=== PATIENT | male | born 1970 | race African-American/Black ===

== ENCOUNTER 2017-04-21 08:02 | Inpatient (IN) | payer SELFPAY ==
[~2017-04-21] VITALS: Ht 180.3 cm; Wt 87.5 kg
[2017-04-21] MEDS ORDERED: ALBUTEROL SULF 2.5 MG/0.5ML(0.5%) NEB SOLN NEB ONE (09:00)
[2017-04-21] MEDS ORDERED: IPRATROPIUM BROM 0.5 MG/2.5ML INH SOL NEB ONE (09:00)
[2017-04-21] MEDS ORDERED: methylPREDNISolone SOD SUCC 125 MG/2 ML VL IM ONE (09:00)
[2017-04-21] MEDS ORDERED: cefTRIAXone SOD 1,000 MG VL IM ONE (09:00)
[2017-04-21] MEDS ORDERED: cefTRIAXone 1GM/50ML D5W 50 ML IV ONE (10:15)
[2017-04-21] MEDS ORDERED: AZITHROMYCIN 500MG/D5W 250ML 250 ML IV ONE ×2 (10:15→13:00)
[2017-04-21] MEDS ORDERED: SODIUM CHLORIDE 0.9% 1,000 ML IV ONE (10:15)
[2017-04-21 10:43] LABS: Basophils # (auto) 0 uL; Basophils % (auto) 0.3 % (0.0-2.0); CONDITION Y; DEFINITIVE SEE PRINTOUT; Eosinophils # (auto) 0 uL; Eosinophils % (auto) 0.2 % (0.0-7.0); Hematocrit 43.1 % (41.0-53.0); Hemoglobin 14.3 g/dL (13.5-17.5); Lymphocytes # (auto) 1.1 uL; Lymphocytes % (auto) 8.5 % (10.0-50.0); Mean Corpuscular Hemoglobin 27.5 pg (28.0-32.0); Mean Corpuscular Hgb Conc. 33.3 g/dL (32.0-36.0); Mean Corpuscular Volume 82.6 fL (80.0-100.0); Mean Platelet Volume 8.8 fL (7.4-10.4); Monocytes # (auto) 0.8 uL; Neutrophils # (auto) 10.6 uL; Platelet Count (auto) 270 10^3/uL (140-450); Red Cell Distribution Width 19.8 % (11.6-16.0); White Blood Cell 12.5 10^3/uL (4.4-10.8)
[2017-04-21 11:04] LABS: Albumin 3.8 g/dL (3.4-5.0); BUN/Creatinine Ratio 15.6; Calcium 8.7 mg/dL (8.5-10.1); Potassium 3.8 mmol/L (3.5-5.1); Total Protein 7.8 g/dL (6.4-8.2)
[2017-04-21] MEDS ORDERED: ONDANSETRON HCL 4 MG/2 ML VIAL IV PRN (13:00)
[2017-04-21] MEDS ORDERED: MORPHINE SULF INJ 2 MG/ML SYRINGE 1ML IV PRN (13:00)
[2017-04-21] MEDS: SODIUM CHLORIDE 0.9% 1,000 ML IV SCH (13:00)
[2017-04-21] MEDS ORDERED: NICOTINE 21MG/24 HR TOPICAL PATCH TD ONE (13:00)
[2017-04-21] MEDS ORDERED: HYDROcodone-ACET 5/325MG TAB PO PRN (13:00)
[2017-04-21 13:12] VITALS: BP 141/81
[2017-04-21 13:45] LABS: INR 0.96 (0.9-1.15); Partial Thromboplastin Time 28.7 sec (22.64-33.71); Prothrombin Time 10.5 sec (9.37-12.3)
[2017-04-21 14:03] LABS: REFLEX LACTIC ACID YES OR NO YES
[2017-04-21 15:05] VITALS: BP 118/63
[2017-04-21 16:27] VITALS: BP 127/76
[2017-04-21] MEDS: ACETAMINOPHEN 500 MG TAB PO PRN (16:30)
[2017-04-21 18:58] LABS: Urine Bilirubin Negative (Negative); Urine Color Yellow (Yellow); Urine Glucose Normal (Normal); Urine Ketone Negative (Negative); Urine Mucus FEW (None Seen); Urine Nitrite Negative (Negative); Urine RBC 2 /hpf (0 - 3); Urine Squamous Epithelial Cell MOD /hpf (<5)
[2017-04-21 19:00] LABS: Urine Blood 1+ /uL (Negative)
[2017-04-21] MEDS: IPRATROPIUM BROM 0.5 MG/2.5ML INH SOL NEB SCH (19:18)
[2017-04-21] MEDS: ALBUTEROL SULF 2.5 MG/0.5ML(0.5%) NEB SOLN NEB SCH (19:19)
[2017-04-21 22:00] VITALS: BP_SYST 125; BP_DIAS 64; BP_DIAS 78
[2017-04-22] MEDS: SODIUM CHLORIDE 0.9% 1,000 ML IV SCH ×2 (00:37→09:00)
[2017-04-22] MEDS: guaiFENesin-DEXTROMETHORPHAN 5ML SYR PO PRN ×4 (01:17→22:30)
[2017-04-22 05:00] VITALS: BP 123/99
[2017-04-22 06:14] LABS: Basophils # (auto) 0 uL; CONDITION Y; DEFINITIVE SEE PRINTOUT; Eosinophils # (auto) 0 uL; Hematocrit 39.9 % (41.0-53.0); Hemoglobin 13.2 g/dL (13.5-17.5); Lymphocytes # (auto) 0.6 uL; Lymphocytes % (auto) 6.1 % (10.0-50.0); Mean Corpuscular Hemoglobin 27.4 pg (28.0-32.0); Mean Corpuscular Volume 82.9 fL (80.0-100.0); Mean Platelet Volume 9.2 fL (7.4-10.4); Monocytes # (auto) 1.3 uL; Monocytes % (auto) 11.8 % (0.0-12.0); Neutrophils # (auto) 8.7 uL; Neutrophils % (auto) 82.1 % (37.0-80.0); Platelet Count (auto) 262 10^3/uL (140-450); Red Cell Distribution Width 19.6 % (11.6-16.0); White Blood Cell 10.6 10^3/uL (4.4-10.8)
[2017-04-22 06:23] LABS: Calcium 8.3 mg/dL (8.5-10.1); Potassium 3.9 mmol/L (3.5-5.1)
[2017-04-22 06:25] LABS: BUN/Creatinine Ratio 13.9
[2017-04-22] MEDS: IPRATROPIUM BROM 0.5 MG/2.5ML INH SOL NEB SCH ×4 (07:42→18:36)
[2017-04-22] MEDS: ALBUTEROL SULF 2.5 MG/0.5ML(0.5%) NEB SOLN NEB SCH ×4 (07:42→18:36)
[2017-04-22 09:00] VITALS: BP 134/71
[2017-04-22] MEDS: cefTRIAXone 1GM/50ML D5W 50 ML IV SCH (09:40)
[2017-04-22] MEDS: NICOTINE 21MG/24 HR TOPICAL PATCH TD SCH (09:41)
[2017-04-22] MEDS: ACETAMINOPHEN 500 MG TAB PO PRN ×2 (10:12→22:21)
[2017-04-22] MEDS ORDERED: AZITHROMYCIN 500MG/D5W 250ML 250 ML IV ONE (10:45)
[2017-04-22] MEDS ORDERED: ALPRAZolam 0.25 MG TAB PO PRN (10:45)
[2017-04-22 11:22] LABS: B-Type Natriuretic Peptide 390.63 pg/mL (0-100)
[2017-04-22 13:00] VITALS: BP 128/74
[2017-04-22] MEDS ORDERED: POTASSIUM CHL 10% (20 MEQ/15ML) ORAL SOLN PO ONE (16:15)
[2017-04-22] MEDS ORDERED: FUROSEMIDE 20 MG/2 ML VIAL IV ONE (16:15)
[2017-04-22] MEDS: ASPirin-EC 81 mg tab PO SCH (16:54)
[2017-04-22] MEDS: ENALAPRIL MALEATE 2.5 MG TAB PO SCH (16:55)
[2017-04-22 17:00] VITALS: BP 134/78
[2017-04-22 20:00] VITALS: BP 135/71
[2017-04-22 22:00] VITALS: BP 135/71
[2017-04-23 05:00] VITALS: BP 139/67
[2017-04-23] MEDS: ALBUTEROL SULF 2.5 MG/0.5ML(0.5%) NEB SOLN NEB SCH ×4 (06:48→19:23)
[2017-04-23] MEDS: IPRATROPIUM BROM 0.5 MG/2.5ML INH SOL NEB SCH ×4 (06:48→19:23)
[2017-04-23 07:29] LABS: CONDITION Y; DEFINITIVE SEE PRINTOUT; Hematocrit 43.8 % (41.0-53.0); Hemoglobin 14.6 g/dL (13.5-17.5); Mean Corpuscular Hemoglobin 27.8 pg (28.0-32.0); Mean Corpuscular Hgb Conc. 33.3 g/dL (32.0-36.0); Mean Corpuscular Volume 83.4 fL (80.0-100.0); Mean Platelet Volume 9.1 fL (7.4-10.4); Platelet Count (auto) 254 10^3/uL (140-450); White Blood Cell 7.2 10^3/uL (4.4-10.8)
[2017-04-23 07:58] LABS: Red Cell Distribution Width 20.1 % (11.6-16.0)
[2017-04-23 07:59] LABS: Metamyelocytes % 0; Myelocytes % 0; Promyelocytes % 0; Reactive Lymphocytes 0
[2017-04-23 09:00] VITALS: BP 112/70
[2017-04-23] MEDS ORDERED: AZITHROMYCIN 500MG/D5W 250ML 250 ML IV SCH (10:00)
[2017-04-23] MEDS ORDERED: TRIAMTERENE/HCTZ 37.5/25 MG CAP PO ONE (10:30)
[2017-04-23] MEDS: ASPirin-EC 81 mg tab PO SCH (10:44)
[2017-04-23] MEDS: ENALAPRIL MALEATE 2.5 MG TAB PO SCH (10:45)
[2017-04-23] MEDS: NICOTINE 21MG/24 HR TOPICAL PATCH TD SCH (10:45)
[2017-04-23] MEDS: cefTRIAXone 1GM/50ML D5W 50 ML IV SCH (10:45)
[2017-04-23 12:32] LABS: Platelet Estimate Adequate
[2017-04-23 12:33] LABS: Anisocytosis Slight
[2017-04-23 13:00] VITALS: BP 124/94
[2017-04-23 17:00] VITALS: BP 136/95
[2017-04-23] MEDS: guaiFENesin-DEXTROMETHORPHAN 5ML SYR PO PRN (21:07)
[2017-04-23 22:00] VITALS: BP 125/68
[2017-04-24 05:00] VITALS: BP 126/74
[2017-04-24] MEDS: ALBUTEROL SULF 2.5 MG/0.5ML(0.5%) NEB SOLN NEB SCH ×4 (05:37→20:00)
[2017-04-24] MEDS: IPRATROPIUM BROM 0.5 MG/2.5ML INH SOL NEB SCH ×4 (05:37→20:00)
[2017-04-24 07:11] LABS: BUN/Creatinine Ratio 19.3; Calcium 8.7 mg/dL (8.5-10.1); Potassium 3.7 mmol/L (3.5-5.1)
[2017-04-24 08:32] VITALS: BP 111/81
[2017-04-24] MEDS: cefTRIAXone 1GM/50ML D5W 50 ML IV SCH (09:58)
[2017-04-24] MEDS ORDERED: METOPROLOL SUCCINATE XL 50 MG TAB PO SCH (10:45)
[2017-04-24] MEDS ORDERED: ADENOSINE 76 MG in GIVE UN-DILUTED 0 ML IV ONE (11:45)
[2017-04-24] MEDS: NICOTINE 21MG/24 HR TOPICAL PATCH TD SCH (11:46)
[2017-04-24 13:00] VITALS: BP 99/75
[2017-04-24] MEDS: ASPirin-EC 81 mg tab PO SCH (13:41)
[2017-04-24] MEDS: AZITHROMYCIN 250 MG TAB PO SCH (13:41)
[2017-04-24] MEDS: ENALAPRIL MALEATE 2.5 MG TAB PO SCH (13:42)
[2017-04-24] MEDS: TRIAMTERENE/HCTZ 37.5/25 MG CAP PO SCH (13:42)
[2017-04-24 16:33] VITALS: BP 104/69
[2017-04-24 22:00] VITALS: BP 104/65
[2017-04-25 05:00] VITALS: BP 90/59
[2017-04-25] MEDS: ALBUTEROL SULF 2.5 MG/0.5ML(0.5%) NEB SOLN NEB SCH ×2 (06:46→13:35)
[2017-04-25] MEDS: IPRATROPIUM BROM 0.5 MG/2.5ML INH SOL NEB SCH ×2 (06:46→13:35)
[2017-04-25 08:44] VITALS: BP 118/79
[2017-04-25] MEDS: TRIAMTERENE/HCTZ 37.5/25 MG CAP PO SCH (09:38)
[2017-04-25] MEDS: cefTRIAXone 1GM/50ML D5W 50 ML IV SCH (09:38)
[2017-04-25] MEDS: ASPirin-EC 81 mg tab PO SCH (09:38)
[2017-04-25] MEDS: ENALAPRIL MALEATE 2.5 MG TAB PO SCH (09:39)
[2017-04-25] MEDS: NICOTINE 21MG/24 HR TOPICAL PATCH TD SCH (09:39)
[2017-04-25] MEDS: AZITHROMYCIN 250 MG TAB PO SCH (09:39)
[2017-04-25] MEDS ORDERED: METOPROLOL TARTRATE 25 MG TAB PO SCH (10:00)
[2017-04-25 12:37] VITALS: BP 105/74
[2017-04-25 14:07] VITALS: BP 118/79
== END 2017-04-25 14:15 | disposition home or self-care (01) | DRG 871 ==
LOC: ER 08:02 → EAST 08:03
PROVIDERS: ADMIT Internal Medicine; ATTEND Internal Medicine
DX: A41.9 Sepsis, unspecified organism (principal); J18.1 Lobar pneumonia, unspecified organism; I50.43 Acute on chronic combined systolic (congestive) and diastolic (congestive) heart failure; I42.0 Dilated cardiomyopathy; J98.11 Atelectasis; I51.7 Cardiomegaly; F17.200 Nicotine dependence, unspecified, uncomplicated; F41.9 Anxiety disorder, unspecified
CPT/HCPCS: 36415; 71020; 71250; 76604; 78452; 80048; 80053; 80307; 81001; 83605; 83880; 85007; 85025; 85027; 85610; 85730; 87040; 87070; 87205; 93017; 93306; 94640; 96361; 96365; 96367; 96375; 99291; J0153; J0696; J2405

== ENCOUNTER 2017-08-06 12:22 | Emergency (ER) | payer SELFPAY ==
[~2017-08-06] VITALS: Ht 180.3 cm; Wt 97.5 kg
[2017-08-06 12:37] VITALS: BP 126/101
[2017-08-06 13:36] LABS: Basophils # (auto) 0.1 uL; Basophils % (auto) 0.7 % (0.0-2.0); Eosinophils # (auto) 0.1 uL; Eosinophils % (auto) 1.4 % (0.0-7.0); Hematocrit 47.3 % (41.0-53.0); Hemoglobin 15.9 g/dL (13.5-17.5); Lymphocytes # (auto) 2.9 uL; Lymphocytes % (auto) 30.1 % (10.0-50.0); Mean Corpuscular Hemoglobin 29.3 pg (28.0-32.0); Mean Corpuscular Hgb Conc. 33.7 g/dL (32.0-36.0); Mean Platelet Volume 8.8 fL (6.9-10.8); Monocytes # (auto) 0.7 uL; Monocytes % (auto) 7.3 % (0.0-12.0); Neutrophils # (auto) 5.9 uL; Neutrophils % (auto) 60.5 % (37.0-80.0); Nucleated Red Blood Cells % 0.2 %; Platelet Count (auto) 242 10^3/uL (140-450); Red Cell Distribution Width 15.9 % (11.8-14.3); White Blood Cell 9.8 10^3/uL (4.4-10.8)
[2017-08-06 13:44] LABS: Albumin 3.3 g/dL (3.4-5.0); Alkaline Phosphatase 94 U/L (45-117); Anion Gap 4 (5-15); Aspartate Aminotransferase 10 U/L (15-37); Bilirubin, Total 1.3 mg/dL (0.2-1.0); Blood Urea Nitrogen 11 mg/dL (7-18); Calcium 8.5 mg/dL (8.5-10.1); Carbon Dioxide 26 mmol/L (21-32); Chloride 108 mmol/L (98-107); GFR African American 102 mL/min; GFR Non-African American 84 mL/min; Glucose 103 mg/dL (74-106); Magnesium 2.2 mg/dL (1.6-2.6); Sodium 138 mmol/L (136-145); Total Protein 7.4 g/dL (6.4-8.2)
== END 2017-08-06 19:30 | disposition left against medical advice (07) ==
LOC: ER 12:22
DX: R06.02 Shortness of breath (principal); R00.2 Palpitations; Z53.21 Procedure and treatment not carried out due to patient leaving prior to being seen by health care provider
CPT/HCPCS: 36415; 71020; 80053; 83735; 84484; 85025; 93005

== ENCOUNTER 2017-11-11 17:17 | Emergency (ER) | payer MEDICAID ==
[~2017-11-11] VITALS: Ht 180.3 cm; Wt 102.1 kg
[2017-11-11 17:32] VITALS: BP 152/93
[2017-11-11 18:40] LABS: Basophils # (auto) 0.1 uL; Basophils % (auto) 0.5 % (0.0-2.0); Eosinophils # (auto) 0.1 uL; Eosinophils % (auto) 0.9 % (0.0-7.0); Hematocrit 47.6 % (41.0-53.0); Hemoglobin 15.8 g/dL (13.5-17.5); Lymphocytes # (auto) 2.7 uL; Lymphocytes % (auto) 25.9 % (10.0-50.0); Mean Corpuscular Hemoglobin 29.7 pg (28.0-32.0); Mean Corpuscular Hgb Conc. 33.2 g/dL (32.0-36.0); Mean Corpuscular Volume 89.3 fL (80.0-100.0); Neutrophils # (auto) 6.5 uL; Neutrophils % (auto) 62.7 % (37.0-80.0); Nucleated Red Blood Cells % 0.1 %; Platelet Count (auto) 239 10^3/uL (140-450); Red Blood Cells 5.33 10^6/uL (4.5-5.90); Red Cell Distribution Width 14.5 % (11.8-14.3); White Blood Cell 10.4 10^3/uL (4.4-10.8)
[2017-11-11 18:41] LABS: Alanine Aminotransferase 25 U/L (16-61); Albumin 3.5 g/dL (3.4-5.0); Alkaline Phosphatase 92 U/L (45-117); Anion Gap 11 (5-15); Aspartate Aminotransferase 12 U/L (15-37); BUN/Creatinine Ratio 14.8; Bilirubin, Total 0.5 mg/dL (0.2-1.0); Blood Urea Nitrogen 17 mg/dL (7-18); Calcium 8.4 mg/dL (8.5-10.1); Carbon Dioxide 22 mmol/L (21-32); Chloride 107 mmol/L (98-107); GFR African American 87 mL/min; GFR Non-African American 72 mL/min; Glucose 80 mg/dL (74-106); Potassium 3.9 mmol/L (3.5-5.1); Sodium 140 mmol/L (136-145); Total Protein 7.9 g/dL (6.4-8.2)
== END 2017-11-11 20:22 | disposition left against medical advice (07) ==
LOC: ER 17:20
DX: R06.02 Shortness of breath (principal); Z53.21 Procedure and treatment not carried out due to patient leaving prior to being seen by health care provider
CPT/HCPCS: 36415; 71046; 80053; 84484; 85025; 93005

== ENCOUNTER 2018-01-22 19:38 | Emergency (ER) | payer MEDICAID, OTHER ==
[~2018-01-22] VITALS: Ht 182.9 cm; Wt 86.2 kg
[2018-01-22 19:40] VITALS: BP 155/103
== END 2018-01-22 20:38 ==
LOC: EDBD 19:38 → ER 19:41
DX: R07.89 Other chest pain (principal); F17.210 Nicotine dependence, cigarettes, uncomplicated
CPT/HCPCS: 93005

== ENCOUNTER 2018-01-23 16:09 | Emergency (ER) | payer OTHER ==
[~2018-01-23] VITALS: Ht 180.3 cm; Wt 92.5 kg
[2018-01-23 16:20] VITALS: BP 118/74
== END 2018-01-23 16:43 | disposition home or self-care (01) ==
LOC: EDBD 16:09 → ER 16:15
DX: R07.89 Other chest pain (principal); I11.0 Hypertensive heart disease with heart failure; I50.9 Heart failure, unspecified; F17.200 Nicotine dependence, unspecified, uncomplicated
CPT/HCPCS: 93005

== ENCOUNTER 2020-11-15 15:15 | Emergency (ER) | payer MEDICAID, OTHER ==
[~2020-11-15] VITALS: Ht 180.3 cm; Wt 110.7 kg
[2020-11-15 15:26] VITALS: BP 152/104
== END 2020-11-15 19:23 | disposition left against medical advice (07) ==
LOC: ER 15:15
DX: R21 Rash and other nonspecific skin eruption (principal); Z53.21 Procedure and treatment not carried out due to patient leaving prior to being seen by health care provider

== ENCOUNTER 2023-09-16 07:29 | Inpatient (IN) | payer BC, MEDICAID ==
[~2023-09-16] VITALS: Ht 185.4 cm; Wt 109.4 kg
[2023-09-16 08:23] LABS: Basophils # (auto) 0.1 10 ^3/uL (0-0.2); Basophils % (auto) 0.4 % (0.0-2.0); Eosinophils # (auto) 0.1 10 ^3/uL (0-0.8); Hematocrit 43.9 % (41.0-53.0); Hemoglobin 14.6 g/dL (13.5-17.5); Lymphocytes # (auto) 2.2 10 ^3/uL (0.4-5.4); Lymphocytes % (auto) 14.2 % (10.0-50.0); Mean Corpuscular Hemoglobin 28.9 pg (28.0-32.0); Mean Corpuscular Hgb Conc. 33.2 g/dL (32.0-36.0); Mean Corpuscular Volume 87.1 fL (80.0-100.0); Monocytes # (auto) 1.6 10 ^3/uL (0-1.3); Monocytes % (auto) 10.3 % (0.0-12.0); Neutrophils # (auto) 11.2 10 ^3/uL (1.6-8.6); Neutrophils % (auto) 74.1 % (37.0-80.0); Nucleated Red Blood Cells % 0.1 %; Red Blood Cells 5.04 10^6/uL (4.5-5.90); Red Cell Distribution Width 14.1 % (11.8-14.3); White Blood Cell 15.1 10^3/uL (4.4-10.8)
[2023-09-16 08:56] LABS: INR 1.02 (0.9-1.15); Partial Thromboplastin Time 29.7 SEC (24.5-34.5); Prothrombin Time 10.7 sec (9.3-11.8)
[2023-09-16 09:24] LABS: Alanine Aminotransferase 34 U/L (7-40); Alkaline Phosphatase 116 U/L (46-116); Anion Gap 7 (5-15); BUN/Creatinine Ratio 16.3 (10.0-20.0); Blood Urea Nitrogen 13 mg/dL (9-23); Calcium 8.7 mg/dL (8.7-10.4); Carbon Dioxide 23 mmol/L (20-30); Chloride 108 mmol/L (98-107); Glucose 113 mg/dL (74-106); Lipase 26 U/L (12-53); Potassium 4.4 mmol/L (3.5-5.1); Sodium 138 mmol/L (136-145)
[2023-09-16 09:25] LABS: Albumin 4.1 g/dL (3.2-4.8); Aspartate Aminotransferase 29 U/L (13-40); Bilirubin, Total 1.3 mg/dL (0.2-1.0); Total Protein 6.7 g/dL (5.7-8.2)
[2023-09-16] MEDS ORDERED: PIPERACILLIN-TAZOB 3.375GM 100 ML IV ONE (09:30)
[2023-09-16] MEDS ORDERED: ALBUTEROL MEDNEB 2.5 mg/3ml NEB NEB ONE (11:45)
[2023-09-16] MEDS ORDERED: IPRATROPIUM BROM 0.5 MG/2.5ML INH SOL NEB ONE (11:45)
[2023-09-16] MEDS ORDERED: ACETAMINOPHEN 325 MG TAB PO PRN (12:45)
[2023-09-16] MEDS ORDERED: cefTRIAXone 1GM/50ML D5W 50 ML IV ONE (12:45)
[2023-09-16] MEDS ORDERED: AZITHROMYCIN 500MG/ 250ML 250 ML IV ONE (12:45)
[2023-09-16] MEDS ORDERED: ALBUTEROL MEDNEB 2.5 mg/3ml NEB NEB PRN (12:45)
[2023-09-16 13:41] LABS: LDL Cholesterol 214 mg/dL (< 100); Triglycerides 119 mg/dL (< 150)
[2023-09-16 13:43] LABS: Cholesterol 252 mg/dL (< 200); HDL Cholesterol 37 mg/dL (40-59)
[2023-09-16] MEDS: IPRATROPIUM BROM 0.5 MG/2.5ML INH SOL NEB SCH ×3 (14:00→22:00)
[2023-09-16] MEDS: ALBUTEROL MEDNEB 2.5 mg/3ml NEB NEB SCH ×3 (14:00→22:00)
[2023-09-16 14:08] VITALS: PULSE 78; RESP 20; O2SAT 94
[2023-09-16 16:27] LABS: Rapid Influenza A Negative (Negative); Rapid Influenza B Negative (Negative)
[2023-09-16 16:40] LABS: COVID19 ANTIGEN SOFIA FIA NEGATIVE (NEGATIVE)
[2023-09-16] MEDS ORDERED: DOXYCYCLINE 100MG/250ML 250 ML IV SCH (18:00)
[2023-09-16 18:53] VITALS: BP 151/88; PULSE 120; RESP 22; TEMP 97.6; O2SAT 95
[2023-09-17] MEDS: ALBUTEROL MEDNEB 2.5 mg/3ml NEB NEB SCH (02:00)
[2023-09-17] MEDS: IPRATROPIUM BROM 0.5 MG/2.5ML INH SOL NEB SCH (02:00)
[2023-09-17] MEDS ORDERED: cefTRIAXone 1GM/50ML D5W 50 ML IV SCH (09:00)
[2023-09-17] MEDS ORDERED: ENOXAPARIN SOD 40 MG/0.4 ML SYRINGE SC SCH (10:00)
[2023-09-17] MEDS ORDERED: AZITHROMYCIN 500MG/ 250ML 250 ML IV SCH (10:00)
== END 2023-09-16 20:26 | disposition left against medical advice (07) | DRG 194 ==
LOC: ER 07:29 → OVERFLOW 12:45
PROVIDERS: ADMIT Nurse Practitioner Family; ATTEND Nurse Practitioner Family
DX: J18.9 Pneumonia, unspecified organism (principal); I50.40 Unspecified combined systolic (congestive) and diastolic (congestive) heart failure; E66.01 Morbid (severe) obesity due to excess calories; Z68.31 Body mass index [BMI] 31.0-31.9, adult; F17.210 Nicotine dependence, cigarettes, uncomplicated; F32.A Depression, unspecified; I11.0 Hypertensive heart disease with heart failure; Z77.090 Contact with and (suspected) exposure to asbestos; Z53.29 Procedure and treatment not carried out because of patient's decision for other reasons; Z20.822 Contact with and (suspected) exposure to COVID-19
CPT/HCPCS: 36415; 71046; 80053; 80061; 83605; 83690; 83880; 84443; 85025; 85379; 85610; 85730; 87040; 87426; 87804; 93005; G0378; J0696; J2543